=== PATIENT | female | born 1950 | race Caucasian/White ===

== ENCOUNTER 2018-06-02 18:54 | Emergency (ER) | payer MEDICARE ==
[~2018-06-02] VITALS: Ht 157.5 cm; Wt 76.0 kg
[2018-06-02 19:25] VITALS: BP 134/55
[2018-06-02 19:32] LABS: BASOPHILS # (AUTO) 0.01 x10^3/uL (0-0.1); BASOPHILS % (AUTO) 0 % (0-1); EOSINOPHILS # (AUTO) 0.06 x10^3/uL (0-0.4); EOSINOPHILS % (AUTO) 1 % (1-7); LYMPHOCYTES # (AUTO) 2.57 x10^3/uL (1-3.4); LYMPHOCYTES % (AUTO) 36 % (22-44); MD NO; MEAN CORPUSCULAR HEMOGLOBIN 33.9 pg (27.0-34.8); MEAN CORPUSCULAR HGB CONC 34.6 g/dL (32.4-35.8); MEAN CORPUSCULAR VOLUME 97.8 fL (80-100); MEAN PLATELET VOLUME 8.2 fL (7.4-10.4); MONOCYTES # (AUTO) 0.46 x10^3/uL (0.2-0.8); MONOCYTES % (AUTO) 7 % (2-9); NEUTROPHILS # (AUTO) 3.98 x10^3/uL (1.8-6.8); NEUTROPHILS % (AUTO) 56 % (42-75); PLATELET COUNT 288 x10^3/uL (130-400); RED BLOOD COUNT 4.63 x10^6/uL (3.82-5.3); RED CELL DISTRIBUTION WIDTH 12.8 % (9.6-15.2)
[2018-06-02 19:45] LABS: ALBUMIN 3.6 g/dL (3.4-5.0); ANION GAP 13 mmol/L (5-15); CALCIUM 8.3 mg/dL (8.5-10.1); CHLORIDE 107 mmol/L (98-107)
[2018-06-02 19:51] LABS: CREATININE 0.86 mg/dL (0.55-1.02); TROPONIN I < 0.015 ng/mL (0.000-0.045)
== END 2018-06-02 21:45 | disposition home or self-care (01) ==
LOC: ED 20:00
DX: R07.2 Precordial pain (principal); R09.1 Pleurisy; F17.200 Nicotine dependence, unspecified, uncomplicated
CPT/HCPCS: 36415; 71045; 80048; 82040; 84484; 85025; 85379; 93005; 99285

== ENCOUNTER 2018-06-19 22:04 | Emergency (ER) | payer MEDICARE ==
[~2018-06-19] VITALS: Ht 160 cm; Wt 66.7 kg
[2018-06-19 22:06] VITALS: BP 98/66
== END 2018-06-19 23:10 | disposition home or self-care (01) ==
LOC: ED 23:00
DX: L50.0 Allergic urticaria (principal); T39.1X5A Adverse effect of 4-Aminophenol derivatives, initial encounter; Y92.89 Other specified places as the place of occurrence of the external cause
CPT/HCPCS: 99283; J7512